=== PATIENT | female | born 1955 | race Caucasian/White ===

== ENCOUNTER 2022-01-09 12:56 | Outpatient (CLI) | payer MEDICARE ==
[2022-01-09 15:04] LABS: Hemoglobin 14.3 g/dL (12.0-15.5); Mean Corpuscular Hemoglobin 28.8 pg (27.0-33.0); Mean Corpuscular Volume 87.3 fl (81.6-98.3); Mean Platelet Volume 11.8 fl (7.4-10.4); Platelet Count 191 10x3/uL (150-450); RBC Distribution Width 13.6 % (11.5-14.5); Red Blood Cell (RBC) Count 4.96 10x6/uL (3.90-5.03); White Blood Cell (WBC) Count 6.6 10x3/uL (3.5-10.5)
[2022-01-09 15:27] LABS: Anion Gap 15 mmol/L (10-20); BUN (Urea Nitrogen) 12 mg/dL (9.8-20.1); Calc. Creatinine Clearance 0 mL/min (70-130); Calcium 10.1 mg/dL (7.8-10.44); Carbon Dioxide 25 mmol/L (23-31); Chloride 103 mmol/L (98-107); Estimated GFR 86; Glucose 90 mg/dL (80-115); Potassium 4.4 mmol/L (3.5-5.1); Sodium 139 mmol/L (136-145)
[2022-01-09 15:43] LABS: INR-International Normal Ratio 0.9; PTT 27.9 sec (22.0-33.0); Prothrombin Time 10.3 sec (9.5-12.1)
== END 2022-01-09 12:57 | disposition home or self-care (01) ==
LOC: LABBT 12:56
PROVIDERS: ATTEND Urology
DX: Z01.812 Encounter for preprocedural laboratory examination (principal); D49.4 Neoplasm of unspecified behavior of bladder; R31.9 Hematuria, unspecified; N20.0 Calculus of kidney; N28.1 Cyst of kidney, acquired; B19.20 Unspecified viral hepatitis C without hepatic coma; Z72.0 Tobacco use; N95.2 Postmenopausal atrophic vaginitis; F19.11 Other psychoactive substance abuse, in remission; I25.10 Atherosclerotic heart disease of native coronary artery without angina pectoris; Z87.440 Personal history of urinary (tract) infections; Z87.448 Personal history of other diseases of urinary system; Z20.822 Contact with and (suspected) exposure to COVID-19
CPT/HCPCS: 80048; 85027; 85610; 85730; 86850; 86900; 86901; 87811

== ENCOUNTER 2022-01-14 08:54 | Day surgery (SDC) | payer MEDICARE ==
[2022-01-11 10:03] VITALS: BMI 29.7
[2022-01-14] MEDS ORDERED: Lidocaine 1% MPF 2 ML VIAL ONE (10:10)
[2022-01-14] MEDS ORDERED: Levofloxacin 500 mg/D5W 100 ml Premix Bag ONE (11:59)
[2022-01-14] MEDS ORDERED: mitoMYcin 40 MG in Sodium Chloride 0.9% 40 ML IV SCH (12:30)
[2022-01-14] MEDS ORDERED: Midazolam HCl 2 mg/2 ml Vial ONE (12:32)
[2022-01-14] MEDS ORDERED: Fentanyl 100 MCG/2 ML VIAL ONE ×2 (12:32→14:41)
[2022-01-14] MEDS ORDERED: SUGAMMADEX SODIUM 200 MG/2 ML VIAL ONE (12:32)
[2022-01-14] MEDS ORDERED: Lidocaine 1% PF 5 ML VIAL ONE (12:53)
[2022-01-14] MEDS ORDERED: PROPOFOL 200 MG/20 ML VIAL ONE (12:53)
[2022-01-14] MEDS ORDERED: Ondansetron PF 4 MG/2 ML Vial ONE (12:53)
[2022-01-14] MEDS ORDERED: Rocuronium Bromide 10 MG/ML (10ML VIAL) ONE (12:53)
[2022-01-14] MEDS ORDERED: mitoMYcin 40 MG in Sodium Chloride 0.9% 40 ML I-VESIC SCH (13:00)
[2022-01-14] MEDS ORDERED: Phenazopyridine HCl 100 MG TAB ONE (14:06)
[2022-01-14] MEDS ORDERED: Oxybutynin 5 MG TAB ONE (14:06)
== END 2022-01-14 16:15 | disposition home or self-care (01) ==
LOC: SDC 08:54
PROVIDERS: ATTEND Urology
PROC: 0TBB8ZX Excision of Bladder, Via Natural or Artificial Opening Endoscopic, Diagnostic (ICD-10-PCS; principal; 2022-01-14)
PROC: 3E0K705 Introduction of Other Antineoplastic into Genitourinary Tract, Via Natural or Artificial Opening (ICD-10-PCS; 2022-01-14)
DX: C67.2 Malignant neoplasm of lateral wall of bladder (principal); J44.9 Chronic obstructive pulmonary disease, unspecified; M19.90 Unspecified osteoarthritis, unspecified site; I25.10 Atherosclerotic heart disease of native coronary artery without angina pectoris; F17.210 Nicotine dependence, cigarettes, uncomplicated
CPT/HCPCS: 51720; 52235; J9280; 88305; J1956; J2250; J2405; J2704; J3010

== ENCOUNTER 2022-01-31 09:37 | Outpatient (CLI) | payer MEDICARE ==
[2022-01-31] MEDS ORDERED: Iopamidol 370 76% 100 ML VIAL ONE (11:48)
== END 2022-01-31 09:38 | disposition home or self-care (01) ==
LOC: CT 09:37
PROVIDERS: ATTEND Urology
DX: C67.9 Malignant neoplasm of bladder, unspecified (principal); C77.8 Secondary and unspecified malignant neoplasm of lymph nodes of multiple regions; K74.60 Unspecified cirrhosis of liver; K44.9 Diaphragmatic hernia without obstruction or gangrene
CPT/HCPCS: 71260; 78306; 82565; A9503; Q9967

== ENCOUNTER 2022-02-15 12:26 | Outpatient (CLI) | payer MEDICARE | END 2022-02-15 12:27 | disposition home or self-care (01) | LOC: LABBT 12:26 | PROVIDERS: ATTEND Urology | DX: Z01.810 Encounter for preprocedural cardiovascular examination (principal); C67.9 Malignant neoplasm of bladder, unspecified; R31.9 Hematuria, unspecified; N28.1 Cyst of kidney, acquired; B19.20 Unspecified viral hepatitis C without hepatic coma; N95.2 Postmenopausal atrophic vaginitis; I25.10 Atherosclerotic heart disease of native coronary artery without angina pectoris; F19.11 Other psychoactive substance abuse, in remission; Z87.448 Personal history of other diseases of urinary system; Z87.440 Personal history of urinary (tract) infections; Z72.0 Tobacco use | CPT/HCPCS: 93005; 93010 ==

== ENCOUNTER 2022-02-20 06:02 | Day surgery (SDC) | payer MEDICARE ==
[2022-02-15 13:58] LABS: Hemoglobin 13.4 g/dL (12.0-15.5); Mean Corpuscular Hemoglobin 28.1 pg (27.0-33.0); Mean Corpuscular Volume 87.8 fl (81.6-98.3); Mean Platelet Volume 12.2 fl (7.4-10.4); Platelet Count 192 10x3/uL (150-450); RBC Distribution Width 13.3 % (11.5-14.5); Red Blood Cell (RBC) Count 4.77 10x6/uL (3.90-5.03); White Blood Cell (WBC) Count 6.1 10x3/uL (3.5-10.5)
[2022-02-15 14:14] LABS: Bilirubin Neg (Negative); Blood, Urine Negative (Negative); Clarity Clear (Clear); Glucose, Urine (Dipstick) Normal (Negative); Ketone, Urine Negative (Negative); Leukocyte 100 (Negative); Nitrite Negative (Negative); Protein, Urine (Dipstick) Negative (Neg-Trace); Specific Gravity, Urine 1.015 (1.002-1.036); Urobilinogen Normal mg/dL (Less than 2); pH, Urine 6.5 (5.0-9.0)
[2022-02-15 14:16] VITALS: BMI 29.5
[2022-02-15 14:18] LABS: INR-International Normal Ratio 0.9; PTT 27.2 sec (22.0-33.0); Prothrombin Time 10.3 sec (9.5-12.1)
[2022-02-15 14:22] LABS: Anion Gap 14 mmol/L (10-20); BUN (Urea Nitrogen) 14 mg/dL (9.8-20.1); Calc. Creatinine Clearance 0 mL/min (70-130); Carbon Dioxide 25 mmol/L (23-31); Chloride 103 mmol/L (98-107); Estimated GFR 89; Glucose 91 mg/dL (80-115); Potassium 4.3 mmol/L (3.5-5.1); Sodium 138 mmol/L (136-145)
[2022-02-15 15:10] LABS: Bacteria/HPF 1+ HPF (None Seen); RBC/HPF 0-3 HPF (0-3); Renal Epithelial 0-3 HPF (None Seen); Squamous Epithelial 0-3 HPF (0-3); WBC/HPF 0-3 HPF (0-3)
[2022-02-20] MEDS ORDERED: mitoMYcin 40 MG in Sodium Chloride 0.9% 40 ML I-VESIC SCH (06:30)
[2022-02-20] MEDS ORDERED: fentaNYL Citrate/PF 100 MCG/2 ML SYRINGE ONE (07:08)
[2022-02-20] MEDS ORDERED: Levofloxacin 500 mg/D5W 100 ml Premix Bag ONE (07:20)
[2022-02-20] MEDS ORDERED: ePHEDrine 50 MG/ML VIAL ONE (07:26)
[2022-02-20] MEDS ORDERED: PROPOFOL 200 MG/20 ML VIAL ONE (07:26)
[2022-02-20] MEDS ORDERED: Ondansetron PF 4 MG/2 ML Vial ONE (07:26)
[2022-02-20] MEDS ORDERED: Lidocaine 1% MPF 2 ML VIAL ONE (07:26)
[2022-02-20] MEDS ORDERED: Dexamethasone 20 MG/5 ML VIAL ONE (07:26)
[2022-02-20] MEDS ORDERED: Phenazopyridine HCl 100 MG TAB ONE (08:23)
[2022-02-20] MEDS ORDERED: Oxybutynin 5 MG TAB ONE (08:23)
[2022-02-20] MEDS ORDERED: Fentanyl 100 MCG/2 ML VIAL ONE (08:31)
== END 2022-02-20 12:02 | disposition home or self-care (01) ==
LOC: SDC 06:02
PROVIDERS: ATTEND Urology
PROC: 0TBB8ZX Excision of Bladder, Via Natural or Artificial Opening Endoscopic, Diagnostic (ICD-10-PCS; principal; 2022-02-20)
PROC: 3E0K705 Introduction of Other Antineoplastic into Genitourinary Tract, Via Natural or Artificial Opening (ICD-10-PCS; 2022-02-20)
DX: C67.2 Malignant neoplasm of lateral wall of bladder (principal); N20.0 Calculus of kidney; N28.1 Cyst of kidney, acquired; B19.20 Unspecified viral hepatitis C without hepatic coma; N95.2 Postmenopausal atrophic vaginitis; F17.210 Nicotine dependence, cigarettes, uncomplicated; I25.10 Atherosclerotic heart disease of native coronary artery without angina pectoris; J44.9 Chronic obstructive pulmonary disease, unspecified; M19.90 Unspecified osteoarthritis, unspecified site; Z79.899 Other long term (current) drug therapy; Z20.822 Contact with and (suspected) exposure to COVID-19
CPT/HCPCS: 51720; 52234; 80048; 81001; 85027; 85610; 85730; 86850; 86900; 86901; 87086; 87811; J9280; 88305; J1100; J1956; J2405; J2704; J3010; J3490

== ENCOUNTER 2022-03-01 11:09 | Outpatient (CLI) | payer MEDICARE | END 2022-03-01 11:10 | disposition home or self-care (01) | LOC: LABBT 11:09 | PROVIDERS: ATTEND Urology | DX: Z20.822 Contact with and (suspected) exposure to COVID-19 (principal); C34.90 Malignant neoplasm of unspecified part of unspecified bronchus or lung | CPT/HCPCS: 36415; 80053; 87811 ==

== ENCOUNTER 2022-03-04 08:48 | Outpatient (CLI) | payer MEDICARE ==
[2022-02-28 13:07] VITALS: BMI 29.1
[2022-03-04 12:46] VITALS: BP 119/81; TEMP 98.1
[2022-03-04] MEDS ORDERED: Iopamidol 370 76% 100 ML VIAL ONE (15:09)
== END 2022-03-04 13:30 | disposition home or self-care (01) ==
LOC: CT 08:48
PROVIDERS: ATTEND Urology
DX: C67.9 Malignant neoplasm of bladder, unspecified (principal); R91.8 Other nonspecific abnormal finding of lung field; R59.0 Localized enlarged lymph nodes; N32.89 Other specified disorders of bladder; K76.9 Liver disease, unspecified; E27.8 Other specified disorders of adrenal gland; Z98.890 Other specified postprocedural states; Z90.710 Acquired absence of both cervix and uterus
CPT/HCPCS: 38505; 74178; 88173; 88184; 88305; 88333; 88341; 88342; 88360; Q9967

== ENCOUNTER 2022-03-12 09:33 | Outpatient (CLI) | payer MEDICARE | END 2022-03-12 09:34 | disposition home or self-care (01) | LOC: SCSMRI 09:33 | PROVIDERS: ATTEND Internal Medicine | DX: C34.90 Malignant neoplasm of unspecified part of unspecified bronchus or lung (principal); C79.31 Secondary malignant neoplasm of brain | CPT/HCPCS: 70553; 80053; 84436; 84443; 93005; 93010 ==

== ENCOUNTER 2022-04-23 09:45 | Outpatient (CLI) | payer MEDICARE | END 2022-04-23 09:46 | disposition home or self-care (01) | LOC: CT 09:45 | PROVIDERS: ATTEND Internal Medicine | DX: C67.9 Malignant neoplasm of bladder, unspecified (principal); C34.90 Malignant neoplasm of unspecified part of unspecified bronchus or lung; K74.60 Unspecified cirrhosis of liver; R59.0 Localized enlarged lymph nodes | CPT/HCPCS: 71260; 74177 ==

== ENCOUNTER 2022-05-20 15:08 | Outpatient (CLI) | payer MEDICARE | END 2022-05-20 15:09 | disposition home or self-care (01) | LOC: BICRAD 15:08 | PROVIDERS: ATTEND Internal Medicine | DX: M06.9 Rheumatoid arthritis, unspecified (principal); M19.041 Primary osteoarthritis, right hand ==

== ENCOUNTER 2022-06-06 08:44 | Outpatient (CLI) | payer MEDICARE | END 2022-06-06 08:45 | disposition home or self-care (01) | LOC: CT 08:44 | PROVIDERS: ATTEND Internal Medicine | DX: C34.90 Malignant neoplasm of unspecified part of unspecified bronchus or lung (principal); C67.9 Malignant neoplasm of bladder, unspecified; E07.9 Disorder of thyroid, unspecified | CPT/HCPCS: 70553; 71260; 74177 ==

== ENCOUNTER 2022-07-02 13:31 | Outpatient (CLI) | payer MEDICARE ==
[~2022-07-02 13:31] MED LIST: Iopamidol 370 76% 100 ML VIAL ONE
== END 2022-07-02 13:32 | disposition home or self-care (01) ==
LOC: CT 13:31
PROVIDERS: ATTEND Internal Medicine
DX: C34.90 Malignant neoplasm of unspecified part of unspecified bronchus or lung (principal); I26.99 Other pulmonary embolism without acute cor pulmonale; R06.02 Shortness of breath; R91.8 Other nonspecific abnormal finding of lung field; K74.60 Unspecified cirrhosis of liver
CPT/HCPCS: 71275; Q9967